=== PATIENT | female | born 1985 | race American Indian/Alaskan Native ===

== ENCOUNTER 2017-04-29 06:36 | Inpatient (IN) | payer OTHER ==
[2017-04-27 14:02] VITALS: BMI 34.9
[2017-04-29] MEDS ORDERED: Bupivacaine/Epi 0.25%-1:200,000 10 ml PF inj IJ ONE ×2 (07:55→10:15)
[2017-04-29] MEDS ORDERED: Clindamycin 2% Vaginal Cream(40 gm) ONE (07:55)
[2017-04-29] MEDS ORDERED: Methylene Blue 10 mg/ml (1ml) Inj ONE (07:55)
[2017-04-29] MEDS ORDERED: Midazolam 2 MG/2 ML VIAL ONE (07:56)
[2017-04-29] MEDS ORDERED: Propofol 10 mg/ml Inj (20 ML) ONE ×2 (07:57→09:25)
[2017-04-29] MEDS ORDERED: Phenylephrine 10 mg/ml Inj ONE (08:01)
[2017-04-29] MEDS ORDERED: Bacitracin 50,000 UNIT in Sodium Chloride 0.9% Irrig 1,000 ML IR SCH (08:02)
[2017-04-29] MEDS ORDERED: Lactated Ringer's 1,000 ML IV ONE ×3 (08:29→10:32)
[2017-04-29] MEDS ORDERED: ceFAZolin IV 2 gm in Dextrose 1 GM/50 ML BAG IVPB ONE (09:30)
--- NOTE | 2017-04-29 11:15 | PCM.SURG1 ---
Surgeon's Initial Post Op Note - Surgeon's Notes Surgeon: divina bloom md Legal Director: medical student S3 Type of Anesthesia: General Endo, Local Pre-Operative Diagnosis: abnormal uterine bleeding. fibroid uterus. cervical polyp. stress urinary incontience. Chronic pelvic pain. 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 anterior endometrial cavity myoma resected with myosure. cystoscopy normal findings at th end of the procedure. Detailed operative report. This is a 31 years old female with long-standing and worsening symptoms of stress urinary incontinence for many years. In addition, the patient presented with abnormal uterine bleeding submucosal fibroid as well as endometrial polyps. Lastly, the patient has been suffering with severe presentation of condyloma/genital warts. 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 The patient reported these symptoms to be debilitating and adversely affecting her quality of life. The patient is reporting leakage of urine upon any exertion, coughing sneezing. For several years these symptoms of severe leakage of urine on exertion have worsened. A complete work up in the office which included an ultrasound and urodynamic study revealed a clear picture of stress urinary incontinence. Following the workup and long discussion or the surgical vs. conservative options, the patient had a long period of conservative management which included weight loss , Kegel exercises, and pelvic floor rehabilitation exercises with abdomen full improvement in symptoms of incontinence. A decision was made to proceed with a mid-urethral sling procedure using mesh material. After a detailed discussion regarding the pros and cons of sling procedure and the utilization of mesh material, all risks were reviewed including, risk of infection; mesh erosion, pain and dyspareunia. In addition, the FDA warning about mesh utilization for prolapse and incontinence surgery was reviewed in details, and specific written consent was obtained. The patient elected to proceed with a Midurethral sling today fully understanding the risk associated with utilizing mesh material. Other alternatives were also offered to the patient, including a biological graft such as porcine sling as well as the patient owns fascia as sling material , she elected to proceed with a mesh sling despite associated risks. In addition, the patient underwent bariatric surgery several years back, lost a lot of weight as a result of surgery, following which her urinary incontinence worsened significantly. Lastly, with a significant weight loss following a bariatric surgery, the patient had redundancy within her vulvar skin. Following extensive consultation and discussions, the patient elected to proceed with Hysteroscopic resection of fibroids and endometrial polyps, mid urethral sling utilizing polypropylene mesh sling, and excision of vulvar masses as well as ablation of isolated condylomata around her anus and groin area. After proper consent was obtained from the patient, patient was taken to the operating room where general anesthesia was obtained without difficulty. She was placed in the dorsal lithotomy position, her legs were placed in adjustable Erik stirrups, and careful attention was placed not to over flex or over rotates the lower extremities. Medeiros catheter was inserted under sterile conditions. She was prepped and draped appropriately for a mid-urethral sling procedure. The anterior vaginal wall over the Midurethral area was grasped with a pair of Allis clamps and tenting the vaginal wall from the underlying urethra. Local anesthetic solution of 0.25% Marcaine with epinephrine diluted 1: 1 was used to infiltrate the periurethral space. A total of 20 cc was utilized. Using a scalpel, a midurethral vertical incision about 1 cm was made through the vaginal epithelium and periurethral fascia. Careful lateral sharp dissection using Metzenbaum scissors towards the inferior pubic ramus to eventually allowed the sling graft to lie flat against the urethra. Next, the sling mesh was loaded onto the needle tip. The needle tip was inserted through one side of the incision towards the medial edge of the obturator foramen approximately 45 degrees of the horizontal plane. Using an arching motion, the needle tip was advanced through pushing the obturator internus muscle. The needle was released from the graft and loaded on the other side of the sling ready for deployment to the contralateral side. Ensuring the sling is flat on the urethra and not twisted, the needle was advanced in an arching motion towards the obturator internus muscle on the opposite site. Attention was readdressed to allow a flat placement with tension- free sling on the midurethra. Following saline irrigation and good hemostasis was noted, the vaginal mucosa was closed with 2-0 Vicryl in a locking fashion. At this time, the Medeiros catheter was removed and a diagnostic cystoscopy was performed. The bladder was distended with about 300 cc of fluid. Both ureteral orifices were noted to be fluxing urine normally. The trigone was normal. There were no noted abnormalities with any evidence of any compromise of the lower urinary tract with mesh material, sutures or instruments. Next, weighted speculum was placed in the patient's vagina, and the cervix was grasped with a tenaculum. The cervix was dilated sufficiently to allow a hysteroscope to be advanced into the endometrial cavity. Hysteroscope was carefully advanced and a survey of the endometrium was completed. Multiple small polyps were noted along the posterior uterine wall. An anterior uterine wall submucosal myoma was noted as well. A Couch sure device was inserted through the hysteroscope, utilizing normal saline solution for distention medium, the polyps as well as the myoma were resected in a careful and meticulous fashion. Excellent hemostasis was noted. Specimen was sent to pathology for permanent analysis. Lastly, attention was turned to the patient's vulvar area. Local anesthetic solution of quarter percent Marcaine was utilized to infiltrate the vulva on both sides as well as the labia. A scalpel was utilized to excise the vulvar mass on the right and left side with clear margins. Vulvectomy was completed excising all the condyloma which was severely growing on the right and left labia. This was a severe case of condyloma and isolated lesions extending around the anus and on the groin area. Isolated condyloma were excised as well as ablated in a systematic and meticulous fashion with excellent hemostasis. As a result of her significant weight loss following a bariatric surgery resulting in a redundant vulvar skin and vaginoplasty was completed excising the excess skin, incorporating the incisions on the vulvectomy along the vaginoplasty incisions which resulted in a symmetrical vaginal repair with good anesthetic results. Excellent hemostasis was noted throughout the procedure. Utilizing 2-0 Vicryl and 3-0 Vicryl suture material, this incision on both sides of the labia/vagina were closed in multiple layers utilizing 2-0 Vicryl closing the skin in a subcutaneous fashion with excellent cosmesis as well as hemostasis. Finally vaginal packing was inserted to be removed the next morning. base deficit during the hysteroscopy was under 200 cc of normal saline. The patient emerged from general anesthesia without any difficulty. The patient was taken to the recovery room in stable condition. Prior to incision patient received prophylactic antibiotics, prior to closure sponge lap and needle counts are correct x2. Post-Operative Diagnosis: abnormal uterine bleeding. fibroid uterus. cervical polyp. stress urinary incontience. Chronic pelvic pain. vulvar mass ( condyloma) Operation Performed: midurethral sling. vulvectomy. vaginoplasty. excision of condylomas around anus and groin area. cystoscopy Specimen/Specimens Removed: vulvar mass. condyloma Estimated Blood Loss: EBL {In ML}: 10 Blood Products Given: N/A Drains Used: No Drains Post-Op Condition: Good Date of Surgery/Procedure: 04/29/17 Time of Surgery/Procedure: 11:16
[2017-04-29] MEDS ORDERED: Oxycodone/Acetaminophen 5/325 mg Tab PO PRN (11:16)
[2017-04-29] MEDS ORDERED: Sodium Chloride 0.9% 1,000 ML IV SCH (11:30)
[2017-04-29] MEDS: HYDROmorphone 0.5 mg/0.5 ml ISec IVP PRN ×2 (12:00→14:49)
[2017-04-29] MEDS ORDERED: Sodium Chloride 0.9% 1,000 ML IV ONE (12:49)
[2017-04-29] MEDS ORDERED: ceFAZolin IV 1 gm in Dextrose 1 GM/50 ML BAG IVPB SCH (14:00)
[2017-04-29] MEDS: ceFAZolin IV 1 gm in Dextrose 1 GM/50 ML BAG IVPB SCH (18:02)
[2017-04-30] MEDS: ceFAZolin IV 1 gm in Dextrose 1 GM/50 ML BAG IVPB SCH ×2 (01:50→09:42)
[2017-04-30 07:25] LABS: HEMATOCRIT 27.9 % (34.0-47.0); MEAN CELL VOLUME 78.4 fL (81.0-99.0); MEAN CORPUSCULAR HEMOGLOBIN 25.1 pg (27.0-31.0); MEAN PLATELET VOLUME 9.4 fL (7.2-11.7); RED CELL DISTRIBUTION WIDTH 15.8 % (11.5-14.5); WHITE BLOOD COUNT 9.3 K/uL (4.8-10.8)
[2017-04-30 07:46] LABS: CHLORIDE 105 mmol/L (98-107)
[2017-04-30 07:47] LABS: POTASSIUM 3.7 mmol/L (3.6-5.2); SODIUM 138 mmol/L (132-148)
[2017-04-30 07:49] LABS: GFR AFRICAN-AMERICAN > 60
[2017-04-30 07:50] LABS: BLOOD UREA NITROGEN 6 mg/dL (7-17); CALCIUM 8.2 mg/dl (8.6-10.4); CARBON DIOXIDE 22 mmol/L (22-30); GLUCOSE,RANDOM 107 mg/dL (65-105)
[2017-04-30 07:58] VITALS: BP 107/67; PULSE 69; RESP 18; TEMP 98.3; O2SAT 99
--- NOTE | 2017-04-30 22:39 | CP.PCM.PN ---
Subjective - Date & Time of Evaluation Date of Evaluation: 04/30/17 Time of Evaluation: 11:00 - Subjective Subjective: Patient was seen and examined today, patient was reporting feeling very well, report some incisional pain, pelvic catheter was removed morning and patient was able to void freely. Patient was able to ambulate, had good appetite, denied any palpitations shortness of breath or chest pain. Vaginal packing was removed appeared to be dry and clean. Objective - Vital Signs/Intake and Output Vital Signs (last 24 hours): Temp Pulse Resp BP Pulse Ox 98.3 F 69 18 107/67 99 04/30/17 07:05 04/30/17 07:05 04/30/17 07:05 04/30/17 07:05 04/30/17 07:05 - Labs Labs: 04/30/17 07:11 04/30/17 07:11 - Constitutional Appears: Well, Non-toxic - Head Exam Head Exam: ATRAUMATIC - Eye Exam Eye Exam: EOMI - ENT Exam ENT Exam: Mucous Membranes Moist - Neck Exam Neck Exam: Full ROM, Normal Inspection - Respiratory Exam Respiratory Exam: Clear to Ausculation Bilateral, NORMAL BREATHING PATTERN - Cardiovascular Exam Cardiovascular Exam: REGULAR RHYTHM - GI/Abdominal Exam GI & Abdominal Exam: Normal Bowel Sounds - Extremities Exam Extremities Exam: Full ROM - Back Exam Back Exam: NORMAL INSPECTION - Neurological Exam Neurological Exam: Alert, Awake, Normal Gait, Oriented x3 - Psychiatric Exam Psychiatric exam: Normal Affect, Normal Mood - Skin Skin Exam: Normal Color Assessment and Plan - Assessment and Plan (Free Text) Assessment: status post vulvectomy, NovaSure procedure, and mid urethral sling Plan: ppostoperative day #1 Afebrile stable hemodynamics Patient is recovering well from surgery Patient discharged home today and followup in 2 weeks Tight precautions given Percocet #40 prescription was given
== END 2017-04-30 15:16 | disposition home or self-care (01) | DRG 743 ==
LOC: C.SDS 06:36 → C.9S 11:16 → C.6T 17:50
PROVIDERS: ADMIT Obstetrics & Gynecology; ATTEND Obstetrics & Gynecology
PROC: 0UBMXZZ Excision of Vulva, External Approach (ICD-10-PCS; 2017-04-29)
PROC: 0UQGXZZ Repair Vagina, External Approach (ICD-10-PCS; 2017-04-29)
PROC: 0TJB8ZZ Inspection of Bladder, Via Natural or Artificial Opening Endoscopic (ICD-10-PCS; 2017-04-29)
PROC: 0TSD0ZZ Reposition Urethra, Open Approach (ICD-10-PCS; principal; 2017-04-29 07:45)
PROC: 0UB98ZZ Excision of Uterus, Via Natural or Artificial Opening Endoscopic (ICD-10-PCS; 2017-04-29 07:45)
DX: N39.3 Stress incontinence (female) (male) (principal); A63.0 Anogenital (venereal) warts; D25.0 Submucous leiomyoma of uterus; N84.0 Polyp of corpus uteri